=== PATIENT | female | born 1960 | race American Indian/Alaskan Native ===

== ENCOUNTER 2016-11-04 15:30 | Outpatient (CLI) | payer OTHER ==
--- NOTE | 2016-11-04 16:37 | XRay Report ---
Cervical spine 3 views: History: Cervicalagia. Findings: Normal height of vertebral bodies. Decrease in height of C5-C6 and C6-C7. Sclerotic articular surfaces with peripheral osteophytes suggestive of cervical spondylosis. Normal prevertebral soft tissue. No fracture. Impression: Spondylosis C5-C6 and C6-C7.
== END 2016-11-04 15:31 | disposition home or self-care (01) ==
LOC: SPVIMAG 15:30
DX: M47.892 Other spondylosis, cervical region (principal); M25.78 Osteophyte, vertebrae
CPT/HCPCS: 72040

== ENCOUNTER 2017-07-23 11:11 | Outpatient (CLI) | payer OTHER ==
--- NOTE | 2017-07-25 08:54 | Mammography Report ---
Screening mammogram: Routine views compared to comparable study in July 2014. In the right MLO projection there is a focal area of increased fibroglandular density in the superior breast only seen in the lateral projection. The breasts findings otherwise without heterogeneously dense fibroglandular tissue in a symmetric distribution unchanged from prior exam. Scattered benign and generally unchanged calcifications noted in the left breast. CAD used. Impression: Right breast asymmetry. Recommendation: Compression imaging of the right breast and ultrasound if needed. BI-RADS CATEGORY: 0 = Needs additional imaging evaluation ACR BI-RADS MAMMOGRAPHIC CODES: 0 = Needs additional imaging evaluation; 1 = Negative; 2 = Benign; 3 = Probably benign; 4 = Suspicious; 5 = Malignant; 6 = Known biopsy-proven malignancy COMMENT: 1. Dense breast tissue, i.e., adenosis, fibrocystic changes, etc., may obscure an underlying neoplasm. 2. Approximately 10% of cancers are not detected with mammography. 3. A negative mammography report should not delay biopsy if a clinically suspicious mass is present.
== END 2017-07-23 11:12 | disposition home or self-care (01) ==
LOC: SPVWC 11:11
DX: Z12.31 Encounter for screening mammogram for malignant neoplasm of breast (principal)
CPT/HCPCS: 77067; G0202

== ENCOUNTER 2022-02-10 09:26 | Emergency (ER) | payer OTHER ==
[2022-02-10 18:33] LABS: Basophils # (Auto) 0.1 K/mm3 (0.0-0.1); Eosinophils # (Auto) 0.2 K/mm3 (0.0-0.4); Eosinophils % (Auto) 3.8 % (0.0-4.3); Hematocrit 36.6 % (30.3-42.9); Hemoglobin 12.2 gm/dl (10.1-14.3); Lymphocytes # (Auto) 2.6 K/mm3 (1.2-5.4); Lymphocytes % (Auto) 45.5 % (13.4-35.0); Mean Corpuscular HGB Conc 33 % (30-34); Mean Corpuscular Volume 101 fl (79-97); Monocytes # (Auto) 0.3 K/mm3 (0.0-0.8); Monocytes % (Auto) 5.5 % (0.0-7.3); Platelet Count 322 K/mm3 (140-440); Red Blood Count 3.62 M/mm3 (3.65-5.03); Red Cell Distribution Width 13.1 % (13.2-15.2)
--- NOTE | 2022-02-10 18:35 | XRay Report ---
CHEST 1 VIEW INDICATION / CLINICAL INFORMATION: upper back pain. FINDINGS: SUPPORT DEVICES: None. HEART / MEDIASTINUM: No significant abnormality. LUNGS / PLEURA: No significant pulmonary or pleural abnormality. No pneumothorax. ADDITIONAL FINDINGS: No significant additional findings. IMPRESSION: 1. No acute findings. Signer Name: Himanshu Bravo MD Signed: 02/10/2022 6:30 PM Workstation Name: [email or web address]
--- NOTE | 2022-02-10 18:36 | XRay Report ---
XR spine thoracic 2V HISTORY: upper back pain COMPARISON: None. TECHNIQUE: 2 view(s) of the thoracic spine obtained. FINDINGS: Vertebrae: Normal alignment. Vertebral body heights are preserved. Spondylosis:Disc space heights are preserved. IMPRESSION: 1. No acute abnormality of the thoracic spine. Signer Name: Monster Mooney MD Signed: 02/10/2022 6:32 PM Workstation Name: [id number]
[2022-02-10 18:48] LABS: Alanine Aminotransferase 8 units/L (7-56); Blood Urea Nitrogen 21 mg/dL (7-17); Calcium 9.1 mg/dL (8.4-10.2); Hemolysis Index 34
[2022-02-10 18:49] LABS: BUN/Creatinine Ratio 30
--- NOTE | 2022-02-10 20:51 | Emergency Department Report ---
ED General Adult HPI - General Chief complaint: Extremity Problem,Nontraumatic Time Seen by Provider: 02/10/22 17:56 Source: patient Mode of arrival: Ambulatory Limitations: No Limitations - History of Present Illness Initial comments: Patient presents with complaints of L sided upper back pain, sharp/spastic, radiating to L arm and hand, worsened by truncal movements, relieved by rest. Endorses some tingling in her L fingers. Denies numbness including saddle anesthesia, weakness, bowel or urinary incontinence, CP, SOB, palpitations, diaphoresis, dysuria, frequency, urgency, recent fall, trauma. Endorses heavy lifting @ work, that involves a lot of pulling. - Related Data Previous Rx's Medication Instructions Recorded Last Taken Type traMADoL [Ultram] 50 mg PO Q6HR PRN #14 tablet 06/02/16 Unknown Rx Cyclobenzaprine HCl [Flexeril 5 MG 1 tab PO Q8H PRN 10 Days #30 tab 02/10/22 Unknown Rx TAB] predniSONE [Deltasone] 2 tab PO QDAY 5 Days #10 tab 02/10/22 Unknown Rx Allergies Allergy/AdvReac Type Severity Reaction Status Date / Time codeine AdvReac Angioedema Verified 06/02/16 07:50 ED Review of Systems ROS: Stated complaint: LT SIDE ARM NUMBNESS Other details as noted in HPI Comment: All other systems reviewed and negative Constitutional: denies: chills, fever ED Past Medical Hx - Past Medical History Hx Hypertension: Yes - Social History Smoking Status: Current Every Day Smoker Substance Use Type: Alcohol - Medications Home Medications: Home Medications Medication Instructions Recorded Confirmed Last Taken Type traMADoL [Ultram] 50 mg PO Q6HR PRN #14 tablet 06/02/16 Unknown Rx Cyclobenzaprine HCl [Flexeril 5 MG 1 tab PO Q8H PRN 10 Days #30 tab 02/10/22 Unknown Rx TAB] predniSONE [Deltasone] 2 tab PO QDAY 5 Days #10 tab 02/10/22 Unknown Rx ED Physical Exam - General Limitations: No Limitations General appearance: alert, in no apparent distress - Head Head exam: Present: atraumatic, normocephalic - Eye Eye exam: Present: PERRL, EOMI - ENT ENT exam: Present: mucous membranes moist, other (airway patent) - Neck Neck exam: Present: other (supple; no JVD) - Respiratory Respiratory exam: Present: other (good air entry, nml I:E, CTAB, no use of SELENA) - Cardiovascular Cardiovascular Exam: Present: regular rate. Absent: rubs, gallop - GI/Abdominal GI/Abdominal exam: Present: soft, normal bowel sounds. Absent: distended, tenderness - Extremities Exam Extremities exam: Present: other (no lower extremity edema; non tender calves; neg Emy's sign bilaterally) - Back Exam Back exam: Present: other (full ROM; no step offs; no vertebral terness; tender to palpation over L thoracic parevertebral/rhomboid muscles, which is re miniscent of her back pain) - Neurological Exam Neurological exam: Present: alert, oriented X3, CN II-XII intact. Absent: motor sensory deficit - Skin Skin exam: Present: warm, normal color ED Course Vital Signs 02/10/22 02/10/22 02/10/22 09:39 18:02 21:03 Temperature 97.9 F 98.9 F 98.4 F Pulse Rate 58 L 87 80 Respiratory 16 19 16 Rate Blood Pressure 156/58 130/61 130/79 [Left] O2 Sat by Pulse 96 99 98 Oximetry ED Medical Decision Making - Lab Data Result diagrams: 02/10/22 18:14 02/10/22 18:14 Laboratory Tests 02/10/22 02/10/22 18:14 18:14 WBC 5.8 RBC 3.62 L Hgb 12.2 Hct 36.6 MCV 101 H MCH 34 H MCHC 33 RDW 13.1 L Plt Count 322 Lymph % (Auto) 45.5 H [place] % (Auto) 5.5 Eos % (Auto) 3.8 Baso % (Auto) 1.0 Lymph # (Auto) 2.6 [place] # (Auto) 0.3 Eos # (Auto) 0.2 Baso # (Auto) 0.1 Seg Neutrophils % 44.2 Seg Neutrophils # 2.6 Sodium 140 Potassium 3.4 L Chloride 102.1 Carbon Dioxide 23 Anion Gap 18 BUN 21 H Creatinine 0.7 Estimated GFR > 60 BUN/Creatinine Ratio 30 Glucose 87 Calcium 9.1 Total Bilirubin < 0.20 AST 17 ALT 8 Alkaline Phosphatase 78 Troponin T < 0.010 Total Protein 7.3 Albumin 4.0 Albumin/Globulin Ratio 1.2 CXR: no acute cardiopulmonary process EKG: HR 54, SR, nml intervals, no significant ST changes in contiguous leads XR T spine: no fracture or traumatic subluxation - Medical Decision Making Diff dz: likely 2/2 thoracic muscle strain. No signs of cardiopulmonary process, vertebral fracture/subluxation/osteomyelitis or cord compression Critical care attestation.: If time is entered above; I have spent that time in minutes in the direct care of this critically ill patient, excluding procedure time. ED Disposition Clinical Impression: Upper back pain on left side Disposition: HOME / SELF CARE / HOMELESS Is pt being admited?: No Does the pt Need Aspirin: No Condition: Stable Instructions: Acute Back Pain, Adult Additional Instructions: Return to the ER if your symptoms worsen. Prescriptions: predniSONE [Deltasone] 2 tab PO QDAY 5 Days #10 tab Cyclobenzaprine HCl [Flexeril 5 MG TAB] 1 tab PO Q8H PRN 10 Days #30 tab PRN Reason: Muscle Spasm Referrals: PRIMARY CARE, [Primary Care Provider] - 3-5 Days Time of Disposition: 20:45
[2022-02-10 21:04] VITALS: BP 130/79
--- NOTE | 2022-02-12 16:54 | Electrocardiograph Report ---
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
== END 2022-02-10 21:00 | disposition home or self-care (01) ==
LOC: ED 09:26
DX: M54.6 Pain in thoracic spine (principal); F17.200 Nicotine dependence, unspecified, uncomplicated; F10.20 Alcohol dependence, uncomplicated; I10 Essential (primary) hypertension
CPT/HCPCS: 36415; 71045; 72070; 80053; 84484; 85025; 93005; 99284